=== PATIENT | female | born 1955 | race African-American/Black ===

== ENCOUNTER 2018-03-28 21:16 | Emergency (ER) | payer BC, MEDICARE ==
[~2018-03-28] VITALS: Ht 172.7 cm; Wt 104.3 kg
[~2018-03-28 21:16] MED LIST: AUGMENTIN 875875 MG PO; CHERATUSSIN AC118 ML PO; HYDROCHLOROTHIA25 M2 PO; PREDNISONE 10 M10 MG PO; PROAIR HFA8.5 GM; TOPAMAX 25 MG T25 M1 PO
[2018-03-28 21:42] LABS: ABSOLUTE BASOPHILS 0.1 thou/uL (0.0-0.2); ABSOLUTE EOSINOPHILS 0.1 thou/uL (0.0-0.7); ABSOLUTE LYMPHOCYTES 4.2 thou/uL (0.8-5.3); ABSOLUTE MONOCYTES 0.6 thou/uL (0.0-1.2); ABSOLUTE NEUTROPHILS 4.5 thou/uL (1.6-8.1); BASOPHILS 1.1 %; EOSINOPHILS 0.6 %; HEMATOCRIT 41.6 % (37.0-47.0); HEMOGLOBIN 13.9 gm/dL (12.0-15.0); LYMPHOCYTES 44.4 %; MCH 26.9 pg (26.0-34.0); MCHC 33.5 g/dL (28.0-37.0); MCV 80.3 fL (80.0-100.0); MONOCYTES 6.5 %; MPV 10.2 fl. (7.2-11.1); NUCLEATED RBCS 0 /100WBC; PLATELET COUNT* 172 thou/uL (150-400); POLYS 47.4 %; RBC 5.18 mil/uL (4.20-5.00); RDW-CV 15.5 % (10.5-14.5); WBC 9.6 thou/uL (4.0-11.0)
[2018-03-28] MEDS ORDERED: MAXZIDE-25 MG1 EACH PO (21:45)
[2018-03-28 21:53] LABS: POC CA IONIZED 4.8 mg/dL (4.5-5.3); POC CREATININE 0.5 mg/dL (0.6-1.3); POC HEMOGLOBIN 14.6 g/dL (12.0-17.0); POC POTASSIUM 2.3 mmol/L (3.5-4.9)
[2018-03-28 21:55] LABS: INR 0.9; PROTIME 9.4 Seconds (9.20-11.50)
[2018-03-28 22:02] LABS: ALBUMIN 3.9 g/dL (3.4-5.0); ALKALINE PHOSPHATASE 98 U/L (46-116); ANION GAP 11 mmol/L (7-16); BUN 11 mg/dL (7-18); CALCIUM 8.9 mg/dL (8.5-10.1); CHLORIDE 105 mmol/L (98-107); CO2 26 mmol/L (21-32); CREATININE 0.7 mg/dL (0.6-1.3); GLUCOSE 137 mg/dL (70-99); SGOT 14 U/L (15-37); SGPT 24 U/L (30-65); SODIUM 142 mmol/L (136-145); TOTAL BILIRUBIN 0.4 mg/dL (<0.1-1.0); TOTAL PROTEIN 7.6 g/dL (6.4-8.2); TROPONIN-I LEVEL <0.06 ng/mL (<0.06)
[2018-03-28 22:04] LABS: POTASSIUM 2.2 mmol/L (3.5-5.1)
[2018-03-28 22:32] LABS: URINE BILIRUBIN NEGATIVE (Negative); URINE BLOOD NEGATIVE (Negative); URINE CLARITY CLEAR; URINE COLOR YELLOW; URINE GLUCOSE-RANDOM NEGATIVE (Negative); URINE KETONES NEGATIVE (Negative); URINE LEUKOCYTES-REFLEX NEGATIVE (Negative); URINE NITRITE-REFLEX NEGATIVE (Negative); URINE PROTEIN NEGATIVE (Negative); URINE UROBILINOGEN 0.2 E.U./dl (0.2-1.0)
[2018-03-28 23:13] VITALS: BP 192/91
--- NOTE | 2018-03-31 09:50 | EKG ---
[place] [address] ELECTROCARDIOGRAM REPORT Name: VIRY MONAHAN [id number] Admission: 03/28/18 Attend Phys: Discharge: 03/28/18 Date of : 53 Report #: [id number] THIS REPORT FOR: //name// [facility] ED Test Date: 2018-03-28 Test Time: 21:30:41 Pat Name: VIRY MONAHAN Department: Room: Gender: F Lead Technical Architect: Rosanna ZEE : 1955 Requested By: Taryn Bojorquez Order Number: [id number] MD: Saul Balderas Measurements Intervals [place] Rate: 75 P: 38 [place]: 168 QRS: -2 QRSD: 110 T: 0 QT: 450 QTc: 503 Interpretive Statements Sinus rhythm Probable left atrial enlargement Abnormal R-wave progression, early transition Left ventricular hypertrophy Prolonged QT interval Baseline wander in lead(s) I,II,aVR,V1 Compared to ECG 05/31/2015 11:52:33 Prolonged QT interval now present Electronically Signed On 03-31-2018 9:50:49 TELLER HEAD by Saul Balderas [email or web address] <ELECTRONICALLY SIGNED> By: Saul Balderas MD, FACC 03/31/18 0950 [id number] 29 Saul Balderas MD, [facility] /EPI
== END 2018-03-28 22:50 | disposition short-term general hospital (02) ==
LOC: M.ERS 21:16
PROVIDERS: Emergency Medicine
DX: I60.9 Nontraumatic subarachnoid hemorrhage, unspecified (principal); I10 Essential (primary) hypertension; Z96.653 Presence of artificial knee joint, bilateral